=== PATIENT | male | born 1980 | race Caucasian/White ===

== ENCOUNTER 2019-01-14 15:04 | Emergency (ER) | payer MEDICAID ==
[~2019-01-14] VITALS: Ht 180.3 cm; Wt 81.6 kg
[2019-01-14 15:17] VITALS: BP_SYST 137
--- NOTE | 2019-01-14 15:21 | NUR ---
Patient to ER bed 8 to gown for evaluation. Side rails up. Report given to Sabino KENDRICK.
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
--- NOTE | 2019-01-14 15:34 | NUR ---
ESTEBAN Mcclendon examining patient.
[2019-01-14] MEDS ORDERED: DIPH-TET-PERTUS Vaccine 0.5 ML VIAL (ADACEL) I.M. ONE (15:45)
[2019-01-14] MEDS ORDERED: BACITRACIN 1 GM OINT TP ONE (15:45)
[2019-01-14] MEDS ORDERED: MORPHINE SULFATE 10 MG/ML VIAL IM ONE (15:45)
[2019-01-14] MEDS ORDERED: DIPHENHYDRAMINE INJ 50 MG/ML VIAL IM ONE (15:45)
--- NOTE | 2019-01-14 16:10 | NUR ---
Patient refused Morphine 10mg and benadryl 50 mg IM. Patient requesting PO medication. [employer]ER[employer]IST notified. New order placed.
[2019-01-14] MEDS ORDERED: HYDROcodone/ACETAMIN 7.5-325 MG TAB PO ONE (16:15)
[2019-01-14 16:52] VITALS: BP_SYST 132
--- NOTE | 2019-01-14 16:54 | NUR ---
Patient given written and verbal discharge instructions and verbalizes understanding. ER MD discussed with patient the results and treatment provided. Patient in stable condition. ID arm band removed. IV catheter removed intact and dressing applied, no active bleeding. Rx of Motrin, Pollard, Bacitracin ,Trobamycin, Keflex given. Patient educated on pain management and to follow up with PMD. Pain Scale 2/10 tolerable for patient . Opportunity for questions provided and answered. Medication side effect fact sheet provided.
== END 2019-01-14 16:52 | disposition home or self-care (01) ==
LOC: SED 15:04
DX: T22.511A Corrosion of first degree of right forearm, initial encounter (principal); T20.512A Corrosion of first degree of left ear [any part, except ear drum], initial encounter; T56.891A Toxic effect of other metals, accidental (unintentional), initial encounter; R03.0 Elevated blood-pressure reading, without diagnosis of hypertension; Y92.89 Other specified places as the place of occurrence of the external cause
CPT/HCPCS: 90715; 99284; J1200; J2270

== ENCOUNTER 2019-11-19 21:32 | Emergency (ER) | payer MEDICAID ==
[~2019-11-19] VITALS: Ht 180.3 cm; Wt 79.4 kg
[2019-11-19 22:10] VITALS: BP_SYST 116
--- NOTE | 2019-11-19 22:10 | NUR ---
Patient triaged and placed in waiting room. VSS and patient appears in no acute distress at this time. Accompanied by self, awaiting available bed, and MD notified of need for MSE.
--- NOTE | 2019-11-19 23:50 | NUR ---
Patient to ER bed 05 to gown for evaluation. Side rails up.
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
--- NOTE | 2019-11-20 00:35 | NUR ---
MD Hernandez at bedside.
[2019-11-20 01:04] VITALS: BP_SYST 120
--- NOTE | 2019-11-20 01:04 | NUR ---
Patient given written and verbal discharge instructions and verbalizes understanding. ER MD discussed with patient the results and treatment provided. Patient in stable condition. ID arm band removed. Rx of Motrin and [place] 5/325 given. Patient educated on pain management and to follow up with PMD. Pain Scale 2/10 tolerable to patient. Opportunity for questions provided and answered. Medication side effect fact sheet provided.
== END 2019-11-20 01:04 | disposition home or self-care (01) ==
LOC: SED 21:32
DX: S62.031A Displaced fracture of proximal third of navicular [scaphoid] bone of right wrist, initial encounter for closed fracture (principal); M25.462 Effusion, left knee; V00.131A Fall from skateboard, initial encounter; Y93.89 Activity, other specified; Y92.89 Other specified places as the place of occurrence of the external cause; Y99.8 Other external cause status
CPT/HCPCS: 73564; 99284